=== PATIENT | female | born 1950 | race Caucasian/White ===

== ENCOUNTER → 2016-06-05 | Outpatient (CLI) | payer MEDICARE ==
[~2016-06-05] MED LIST: BENAZEPRIL HCL10 MG PO; GLIMEPIRIDE2 MG PO; JANUVIA50 MG PO; PROZAC40 MG PO; SYNTHROID125 PO
--- NOTE | ~2016-06-05 | MY11 ---
[facility] A Service of [facility] RADIOLOGY TEXT RESULTS PATIENT: STEVEN GANDARA LOCATION: [facility] : 48 UNIT #: [id number] AGE: [address]: Kyler Frank MD SEX: F ORDER DR: [id number] [place] [id number] O MR#: [id number] Acc #: [id number] NAME: STEVEN GANDARA : 1950 SEX: F STUDY DATE/TIME: 06/05/2016 10:31 UNIT: [facility] ROOM: STUDY DESCRIPTION: MY Mammogram Screening Dig Jose De Jesus Attending Physician: Kyler Frank Jr., M.D. Referring Physician: Kyler Frank Jr., M.D. Ordering Physician: Kyler Frank Jr., M.D. Primary Care Physician: Kyler Frank Jr., M.D. MEDICAL IMAGING REPORT This report is preliminary unless electronic signature is present. EXAM Digital screening mammogram 06/05/2016 HISTORY 65-year-old woman; no risk elevation. Annual screening. COMPARISON 06/04/2008, 04/29/2012, 09/02/2013; diagnostic left breast imaging 03/31/2014. FINDINGS Digital imaging of each breast was completed utilizing screening protocol. Review includes FDA-approved CAD device. Breast parenchyma is predominantly fatty replaced. Mild subareolar duct prominence in each breast stable. Small nodule with benign characteristics and benign coarse calcifications stable, upper outer quadrant, right breast. There is no interval occurring breast mass. There are no suspicious microcalcifications and no architectural deformity. IMPRESSION Benign mammogram. Annual screening recommended. Patients over the age of 40 are entered into a reminder system with target due date for the next mammogram. A result letter will also be sent to the patient. BIRADS: 2 Benign finding. Dictated by... Kyler Kothari M.D. [facility] A Service [facility] RADIOLOGY TEXT RESULTS PATIENT: STEVEN GANDARA LOCATION: [facility] : 48 UNIT #: [id number] AGE: [address]: Kyler Frank MD SEX: F ORDER DR: THIS IS AN ELECTRONICALLY VERIFIED REPORT Kyler Kothari M.D. at 06/05/2016 12:46 PM Netta TD: 06/05/2016 12:13 JOB #: [id number] MEDICAL IMAGING REPORT Page 1 of 1
== END | disposition home or self-care (01) ==
LOC: SMAM 09:55
DX: Z12.31 Encounter for screening mammogram for malignant neoplasm of breast (principal)
CPT/HCPCS: G0202